=== PATIENT | female | born 1990 ===

== ENCOUNTER 2019-08-17 18:58 | Outpatient (CLI) | payer OTHER | END 2019-08-17 21:25 | disposition home or self-care (01) | LOC: OBS/DEL 18:58 | DX: O26.892 Other specified pregnancy related conditions, second trimester (principal); R10.2 Pelvic and perineal pain; O35.8XX0 Maternal care for other (suspected) fetal abnormality and damage, not applicable or unspecified ==

== ENCOUNTER 2019-12-27 06:21 | Inpatient (IN) | payer OTHER ==
[~2019-12-27] VITALS: Ht 157.5 cm; Wt 73.5 kg
[2019-12-27] MEDS ORDERED: FOLIC ACID0.8 M1 PO (08:24)
[2019-12-27] MEDS ORDERED: PRENATAL TABLE1 EACH PO (08:24)
[2019-12-27] MEDS ORDERED: IRON325 MG PO (08:26)
== END 2019-12-30 17:30 | disposition home or self-care (01) | DRG 768 ==
LOC: LDR 06:21 → OB/GYN 20:31
PROVIDERS: ADMIT Obstetrics & Gynecology
PROC: 10E0XZZ Delivery of Products of Conception, External Approach (ICD-10-PCS; principal; 2019-12-27)
PROC: 0DQR0ZZ Repair Anal Sphincter, Open Approach (ICD-10-PCS; 2019-12-27)
PROC: 3E033VJ Introduction of Other Hormone into Peripheral Vein, Percutaneous Approach (ICD-10-PCS; 2019-12-27)
PROC: 10907ZC Drainage of Amniotic Fluid, Therapeutic from Products of Conception, Via Natural or Artificial Opening (ICD-10-PCS; 2019-12-27)
PROC: 4A1HXCZ Monitoring of Products of Conception, Cardiac Rate, External Approach (ICD-10-PCS; 2019-12-27)
DX: O70.21 Third degree perineal laceration during delivery, IIIa (principal); Z37.0 Single live birth; Z3A.39 39 weeks gestation of pregnancy

== ENCOUNTER 2021-01-26 11:04 | Emergency (ER) | payer OTHER ==
[~2021-01-26] VITALS: Ht 157.5 cm; Wt 62.6 kg
[~2021-01-26 11:04] MED LIST: FOLIC ACID0.8 M1 PO; IRON325 MG PO; PRENATAL TABLE1 EACH PO
== END 2021-01-26 17:14 | disposition home or self-care (01) ==
LOC: ER 11:04
DX: O21.0 Mild hyperemesis gravidarum (principal); Z34.01 Encounter for supervision of normal first pregnancy, first trimester

== ENCOUNTER → 2021-03-12 | Emergency (ER) | payer OTHER ==
[~2021-03-12] VITALS: Ht 157.5 cm; Wt 59.0 kg
== END | disposition home or self-care (01) ==
LOC: ER 13:30
DX: O21.0 Mild hyperemesis gravidarum (principal); O26.892 Other specified pregnancy related conditions, second trimester; M94.0 Chondrocostal junction syndrome [Tietze]; Z34.02 Encounter for supervision of normal first pregnancy, second trimester

== ENCOUNTER 2021-05-03 14:09 | Outpatient (CLI) | payer OTHER | END 2021-05-03 15:25 | disposition home or self-care (01) | LOC: PRENATAL 14:09 | PROVIDERS: ATTEND Obstetrics & Gynecology Maternal & Fetal Medicine | DX: O35.0XX1 Maternal care for (suspected) central nervous system malformation in fetus, fetus 1 (principal); O35.3XX1 Maternal care for (suspected) damage to fetus from viral disease in mother, fetus 1; O98.512 Other viral diseases complicating pregnancy, second trimester; Z36.89 Encounter for other specified antenatal screening; Z3A.26 26 weeks gestation of pregnancy ==